=== PATIENT | female | born 1995 | race Asian ===

== ENCOUNTER 2018-09-06 23:19 | Emergency (ER) | payer BC ==
[2018-09-06 23:23] VITALS: BP 129/86; PULSE 112; TEMP 98.3; BMI 27.3
[2018-09-07] MEDS ORDERED: IBUPROFEN 600 MG TABLET (FP) PO ONE ×2 (00:45→01:07)
--- NOTE | 2018-09-07 01:09 | PDOC ---
History of Present Illness - General Chief Complaint: Injury Stated Complaint: FALL Time Seen by Provider: 09/07/18 00:41 History Source: Patient Exam Limitations: No Limitations Past History - Past Medical History Allergies/Adverse Reactions: Allergies Allergy/AdvReac Type Severity Reaction Status Date / Time LOBSTER Allergy Uncoded 09/06/18 23:23 COPD: No - Suicide/Smoking/Psychosocial Hx Smoking History: Never smoked *Physical Exam - Vital Signs Last Vital Signs Temp Pulse Resp BP Pulse Ox 98.3 F 112 H 18 129/86 99 09/06/18 23:20 09/06/18 23:20 09/06/18 23:20 09/06/18 23:20 09/06/18 23:20 - Physical Exam General Appearance: No: Apparent Distress Comments:: RLE DP and PT pulses 2+ 09/07/18 01:06 Extremity: positive: Other (+pain and swelling along R lateral malleolus, no pain or swelling of R foot noted) Integumentary: positive: Normal Color. negative: Ecchymosis, Bruising Neurologic: positive: Alert, Normal Mood/Affect ED Treatment Course - RADIOLOGY Radiology Studies Ordered: Category Date Time Status ANKLE & FOOT-RIGHT* [RAD] Stat Radiology 09/07/18 00:45 Taken Medical Decision Making - Medical Decision Making 23 y/o F with no sig pmh presents with twisting R ankle today. Denies other trauma. Denies numbness, tingling R ankle xray negative for fracture/dislocation Likely ankle sprain R ankle placed in stirrup and given crutches Given motrin for pain 09/07/18 01:06 *DC/Admit/Observation/Transfer Diagnosis at time of Disposition: Right ankle sprain Qualifiers: Encounter type: initial encounter Involved ligament of ankle: unspecified ligament Qualified Code(s): S93.401A - Sprain of unspecified ligament of right ankle, initial encounter - Discharge Dispostion Disposition: HOME Condition at time of disposition: Stable Decision to Admit order: No - Referrals Referrals: Kayley Abbott [Primary Care Provider] - 2 Days - Patient Instructions Printed Discharge Instructions: DI for Ankle Sprain, How to Use Crutches Additional Instructions: Thank you for choosing [facility]. It was a pleasure taking care of you. You may take Motrin 600 mg every 6 hours by mouth as needed for mild to moderate pain. Take Motrin with food. Apply ice to site of swelling for next 2 days. Then you may switch to warm compresses Keep leg elevated above level of heart to help decrease swelling. Return to the Emergency Department if your symptoms worsen or persist or have other concerning symptoms. - Post Discharge Activity
--- NOTE | 2018-09-07 01:11 | PDOC ---
*Physical Exam - Vital Signs Last Vital Signs Temp Pulse Resp BP Pulse Ox 98.3 F 112 H 18 129/86 99 09/06/18 23:20 09/06/18 23:20 09/06/18 23:20 09/06/18 23:20 09/06/18 23:20 Medical Decision Making - Medical Decision Making 09/07/18 01:10 Case reviewed, agree with assessment and plan *DC/Admit/Observation/Transfer Diagnosis at time of Disposition: Right ankle sprain Qualifiers: Encounter type: initial encounter Involved ligament of ankle: unspecified ligament Qualified Code(s): S93.401A - Sprain of unspecified ligament of right ankle, initial encounter - Discharge Dispostion Disposition: HOME Condition at time of disposition: Stable - Referrals Referrals: Kayley Abbott [Primary Care Provider] - 2 Days - Patient Instructions Printed Discharge Instructions: How to Use Crutches, DI for Ankle Sprain Additional Instructions: Thank you for choosing [facility]. It was a pleasure taking care of you. You may take Motrin 600 mg every 6 hours by mouth as needed for mild to moderate pain. Take Motrin with food. Apply ice to site of swelling for next 2 days. Then you may switch to warm compresses Keep leg elevated above level of heart to help decrease swelling. Return to the Emergency Department if your symptoms worsen or persist or have other concerning symptoms. - Post Discharge Activity
== END 2018-09-07 01:20 | disposition home or self-care (01) ==
LOC: JER 23:19
PROC: 2W3QX1Z Immobilization of Right Lower Leg using Splint (ICD-10-PCS; principal; 2018-09-06)
DX: S93.401A Sprain of unspecified ligament of right ankle, initial encounter (principal); X50.1XXA Overexertion from prolonged static or awkward postures, initial encounter; Y93.89 Activity, other specified; Y92.89 Other specified places as the place of occurrence of the external cause; Y99.8 Other external cause status
CPT/HCPCS: 73610-TC-RT-FY; 73630-TC-RT-FY; 99283-25

== ENCOUNTER 2019-10-11 02:54 | Emergency (ER) | payer OTHER ==
[2019-10-11 03:11] VITALS: BMI 26.2
[2019-10-11] MEDS ORDERED: diphenhydrAMINE HCL 25 MG CAPSULE (FP) PO ONE ×2 (03:29→03:59)
[2019-10-11] MEDS ORDERED: FAMOTIDINE 10 MG TABLET PO ONE (03:29)
--- NOTE | 2019-10-11 03:43 | PDOC ---
History of Present Illness - General Chief Complaint: Hives Stated Complaint: HIVES Time Seen by Provider: 10/11/19 03:16 History Source: Patient Exam Limitations: No Limitations - History of Present Illness Initial Comments: Echo Geronimo is a 24 Y F with no significant PMH, presents with 1 day of itchiness/rash. She reports that yesterday evening she started to feel itchy around her neck, with some erythema, no visible rash. After her shower around 6.30 she noticed a few bumps on left flank that looked like bug bites, which progressed to severe rash on her left flank/abd radiating to the stomach and right flank. she tried Benadryl cream, which reduced the hives. She denies any chest pain, SOB, difficulty swallowing, throat pain, swelling, fever, chills, nausea, vomiting or diarrhea. She denies any childhood asthma, but reports mild childhood eczema. No new products, shampoo, body lotions, jewelry, soap. 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 NKDA. She currently uses a 3D cream for Yeast infection. 10/11/19 03:34 10/11/19 03:46 Past History - Medical History Allergies/Adverse Reactions: Allergies Allergy/AdvReac Type Severity Reaction Status Date / Time No Known Drug Allergies Allergy Unknown Verified 10/11/19 03:35 LOBSTER Allergy Unknown Uncoded 10/11/19 03:35 Home Medications: Ambulatory Orders NK [No Known Home Medication] 09/07/18 COPD: No - Reproductive History Is Patient Now?: No - Psycho-Social/Smoking History Smoking History: Never smoked Have you smoked in the past 12 months: No Information on smoking cessation initiated: No - Substance Abuse Hx (Audit-C & DAST Scrn) How often the patient has a drink containing alcohol: Never Score: In Men: 4 or > Positive; In Women: 3 or > Positive: 0 Screen Result (Pos requires Nsg. Audit-10AR): Negative In the last yr the pt used illegal drug/Rx for NonMed reason: No Score: Yes response is considered Positive: 0 Screen Result (Positive result requires Nsg. DAST-10): Negative Review of Systems - Review of Systems Constitutional: No: Chills, Diaphoresis, Fever, Weakness HEENTM: No: Blurred Vision, Tearing, Nose Congestion, Throat Pain, Throat Sw elling, Difficulty Swallowing Respiratory: No: Cough, Shortness of Breath, Wheezing Cardiac (ROS): No: Chest Pain, Edema, Lightheadedness, Palpitations, Chest Tightness ABD/GI: No: Diarrhea, Nausea, Vomiting : No: Burning, Dysuria Musculoskeletal: No: Back Pain, Muscle Weakness Integumentary: Yes: Lumps, Pruritus, Rash Neurological: No: Headache, Numbness, Tingling *Physical Exam - Vital Signs Last Vital Signs Temp Pulse Resp BP Pulse Ox 97.8 F 75 20 118/87 100 10/11/19 03:06 10/11/19 03:06 10/11/19 03:06 10/11/19 03:06 10/11/19 03:06 - Physical Exam General Appearance: Yes: Appropriately Dressed. No: Apparent Distress HEENT: positive: EOMI, ABRIL. negative: Scleral Icterus (R), Scleral Icterus (L), Nasal Congestion, Rhinorrhea, Lesions Neck: positive: Supple. negative: Tender, Lymphadenopathy (R), Lymphadenopathy (L) Respiratory/Chest: positive: Lungs Clear, Normal Breath Sounds. negative: Chest Tender, Respiratory Distress, Crackles, Rales, Wheezing Cardiovascular: positive: Regular Rhythm, Regular Rate, S1, S2. negative: Edema, JVD, Murmur Vascular Pulses: Carotid (R): 2+, Carotid (L): 2+, Dorsalis-Pedis (R): 2+, Doralis-Pedis (L): 2+ Gastrointestinal/Abdominal: positive: Normal Bowel Sounds, Flat. negative: Tender, Tenderness Extremity: positive: Normal Inspection. negative: Pedal Edema, Swelling, Calf Tenderness Integumentary: positive: Normal Color, Warm, Moist, Hives (b/l flank and upper abdominal regions) Neurologic: positive: edge burnisher uppers II-XII NML intact, Fully Oriented, Motor Strength 5/5 ED Treatment Course - LABORATORY CBC & Chemistry Diagram: 10/11/19 05:00 10/11/19 05:00 Medical Decision Making - Medical Decision Making 24 Y F with no significant PMH, presents with 1 day of itchiness/rash. #Progressive Urticaria - now resolving - unclear etiology, could be 2/2 to insect bite - asymptomatic - Tx with Pepcid abd Diphenhydramine HCL - Dispo: reeval after meds 10/11/19 03:47 Discharge - Discharge Information Problems reviewed: Yes Clinical Impression/Diagnosis: Urticaria Condition: Stable Disposition: HOME - Follow up/Referral Referrals: Kayley Abbott [Primary Care Provider] - - Patient Discharge Instructions Additional Instructions: You were seen today (10/11/19) at [facility] ER for 1 day of progressive hives. You reported that the Hives have decreased in severity, compared to yesterday (onset). You were given Famotidine 20 mg and Diphenhydramine HCL 25mg, LR 500ml, solumedrol 125mg to relief hives and itchiness. you reported improvement with medications, your hives appear to have been subsided. You are clinically stable. Please follow up with your primary care PCP, regarding this episode of allergic reaction. If this continues to occur, please follow up with immunology/senior quality methods specialist for further evaluations You stated that you will have one of your friends come pick you up/drive you, The medications you received today can make you drowsy, make sure you are not driving. Please seek medical attention or return to ER immediately, if you experience any of the following: - worsening of your rash - fever and/or chills - difficulty breathing - chest pain - throat pain - wheezing - difficulty speaking - swelling in any part of your body - or any other medical conditions - Post Discharge Activity
[2019-10-11] MEDS ORDERED: FAMOTIDINE 10 MG TABLET ONE (03:58)
[2019-10-11] MEDS ORDERED: LACTATED RINGERS SOLUTION 1000 ML INFUS.BAG IV ONE (05:00)
[2019-10-11] MEDS ORDERED: methylPREDNISolone NA SUCC 125 MG/2 ML VIAL IVPB ONE ×2 (05:01→05:02)
[2019-10-11] MEDS ORDERED: methylPREDNISolone NA SUCC 125 MG/2 ML VIAL ONE (05:05)
[2019-10-11 05:10] LABS: BASO % 0.6 % (0-2.0); EOS % 1.3 % (0-4.5); HEMATOCRIT 44.1 % (32.4-45.2); HEMOGLOBIN 14.6 GM/dL (10.7-15.3); LYMPH % 21.1 % (8-40); MCH 28.9 pg (25.7-33.7); MCHC 33.2 g/dl (32.0-36.0); MEAN CELL VOLUME 87.1 fl (80-96); MEAN PLT VOLUME 7.9 fl (7.5-11.1); MONO % 7.5 % (3.8-10.2); NEUT % 69.5 % (42.8-82.8); PLATELET COUNT 272 K/MM3 (134-434); RBC 5.07 M/mm3 (3.60-5.2); RDW 13.2 % (11.6-15.6); WHITE BLOOD COUNT 8.2 K/mm3 (4.0-10.0)
[2019-10-11 05:38] LABS: ALBUMIN 4.2 g/dl (3.4-5.0); BILIRUBIN,TOTAL 0.4 mg/dL (0.2-1); BLOOD UREA NITROGEN 10.8 mg/dL (7-18); CALCIUM 9.5 mg/dL (8.5-10.1); CREATININE 0.7 mg/dL (0.55-1.3); POTASSIUM 3.7 mmol/L (3.5-5.1); TOT PROT 7.9 g/dl (6.4-8.2)
[2019-10-11 06:20] VITALS: BP 121/79; PULSE 72; TEMP 98.7
--- NOTE | 2019-10-11 07:43 | PDOC ---
Attending Attestation - Resident Resident Name: Gina Albright - ED Attending Attestation I have performed the following: I have examined & evaluated the patient, The case was reviewed & discussed with the resident, I agree w/resident's findings & plan, Exceptions are as noted - HPI HPI: 10/11/19 07:44 See resident HPI - Physicial Exam PE: 10/11/19 07:44 Agree with documented exam - Medical Decision Making 10/11/19 07:44 Urticarial rash on flank and stomach, non-vesicular, not dermatomal, no oropharyngeal involvement, no sob trial pepcid/benadryl/steroid re-eval dispo per clinical course, likely dc Discharge - Discharge Information Problems reviewed: Yes Clinical Impression/Diagnosis: Urticaria Condition: Stable Disposition: HOME - Follow up/Referral Referrals: Kayley Abbott [Primary Care Provider] - - Patient Discharge Instructions Additional Instructions: You were seen today (10/11/19) at [facility] ER for 1 day of progressive hives. You reported that the Hives have decreased in severity, compared to yesterday (onset). You were given Famotidine 20 mg and Diphenhydramine HCL 25mg, LR 500ml, solumedrol 125mg to relief hives and itchiness. you reported improvement with medications, your hives appear to have been subsided. You are clinically stable. Please follow up with your primary care PCP, regarding this episode of allergic reaction. If this continues to occur, please follow up with immunology/solar site assessment specialist for further evaluations You stated that you will have one of your friends come pick you up/drive you, The medications you received today can make you drowsy, make sure you are not driving. Please seek medical attention or return to ER immediately, if you experience any of the following: - worsening of your rash - fever and/or chills - difficulty breathing - chest pain - throat pain - wheezing - difficulty speaking - swelling in any part of your body - or any other medical conditions - Post Discharge Activity Work/Back to School Note: Back to Work
== END 2019-10-11 06:46 | disposition home or self-care (01) ==
LOC: JER 02:54
PROC: 3E033GC Introduction of Other Therapeutic Substance into Peripheral Vein, Percutaneous Approach (ICD-10-PCS; principal; 2019-10-11)
DX: L50.0 Allergic urticaria (principal)
CPT/HCPCS: 36415; 80053; 84703; 85025; 99284-25